=== PATIENT | female | born 1980 | race Two or more races ===

== ENCOUNTER 2024-07-12 20:56 | Emergency (ER) | payer MEDICAID, SELFPAY ==
[2024-07-12 20:56] VITALS: BMI 30.9
[2024-07-12 21:16] VITALS: BP 128/78; PULSE 88; RESP 18; TEMP 36.9; O2SAT 98
[2024-07-12] MEDS: ONDANSETRON ODT 4 MG TABRAP PO (21:33)
[2024-07-12] MEDS: MG HYD/AL HYD/SIME (Maalox Reg) SUSP 30 ML UDC PO (21:35)
--- NOTE | 2024-07-12 21:51 | PD.EDNV ---
Nausea/Vomit./Diarrhea-RME/HPI General Chief complaint: Nausea/Vomiting/Diarrhea Stated complaint: N/V X 1 WEEK Time Seen by Provider: 07/12/24 21:24 Arrival date/time: 07/12/24 20:56 44F with no significant PMH presents to ED with 1 week of intermittent N/V after she gets upset. Patient has been having arguments with her at home. Patient denies pain and SI/HI. Patient declines diagnostics and just wants meds. Limitations: no limitations Related Data Previous Rx's ?Medication ?Instructions ?Recorded benzonatate 200 mg capsule 200 mg PO TID PRN cough #30 caps 02/27/22 codeine 10 mg-guaifenesin 100 mg/5 5 ml PO Q4H PRN cough #120 mL 02/27/22 mL oral liquid ciprofloxacin HCl 500 mg tablet 500 mg PO BID #14 tabs 06/02/23 (Cipro) ondansetron 4 mg disintegrating 4 mg PO Q8H PRN nausea and 07/12/24 tablet vomiting #20 tabs Allergies Allergy/AdvReac Type Severity Reaction Status Date / Time NKA* Allergy Uncoded 07/12/24 20:57 Review of Systems Review of Systems Systems Reviewed: All systems reviewed, normal except as documented Constitutional Constitutional: Reports system reviewed and no additional complaints, except as documented, Denies fever(s) and Denies headache(s) ENT Ears, Nose, Mouth, and Throat: Denies disequilibrium and Denies headache(s) Cardiovascular Cardiovascular: Reports system reviewed and no additional complaints, except as documented, Denies chest pain and Denies dyspnea Respiratory Respiratory: Reports system reviewed and no additional complaints, except as documented, Denies cough and Denies dyspnea Gastrointestinal Gastrointestinal: Reports system reviewed and no additional complaints, except as documented, Reports as per HPI, Denies abdominal pain, Reports nausea and Reports vomiting Neurologic Neurologic: Reports system reviewed and no additional complaints, except as documented, Denies confusion, Denies disequilibrium and Denies headache(s) Psychiatric Psychiatric: Denies confusion Past Medical History Past Medical History CARDIAC: Negative Congestive Heart Failure RESPIRATORY: Negative Chronic Obstructive Pulmonary Disease (COPD) GENITOURINARY: Negative Renal Disease ENDOCRINE: Negative Diabetes Mellitus Type 1 or Diabetes Mellitus Type 2 Social History SMOKING STATUS: Never smoker SUBSTANCE USE: does not use ED Exam General Limitations: Present no limitations General appearance: Present alert and in no apparent distress Head Head exam: Present atraumatic Eye Eye exam: Present normal appearance, PERRL and EOMI ENT ENT exam: Present normal exam, normal oropharynx and mucous membranes moist Neck Neck exam: Present normal inspection, full ROM and trachea midline Chest Chest inspection: Present normal inspection and symmetric chest wall rise Respiratory Respiratory exam: Present normal lung sounds bilaterally Cardiovascular Cardiovascular exam: Present regular rate, normal rhythm and normal heart sounds Abdominal Exam Abdominal exam: Present soft and normal bowel sounds Extremities Exam Extremities exam: Present normal inspection and full ROM Back Exam Back exam: Present normal inspection and full ROM Neurological Exam Neurological exam: Present alert, oriented X3 and CN II-XII intact Psychiatric Psychiatric exam: Present normal affect and normal mood Skin Skin exam: Present warm, dry, intact and normal color Course Quality Measures none Orders Category Date Time Status Ondansetron Odt [Zofran Odt] Med 07/12/24 21:24 Discontinued 4 mg PO X1 ONE mg Hyd/Al Hyd/Tristan Susp [Maalox Susp] Med 07/12/24 21:24 Discontinued 30 ml PO X1 ONE mg Hyd/Al Hyd/Tristan Susp [Maalox Susp] Med 07/12/24 21:30 Discontinued 30 ml PO X1 ONE Vital Signs Vital signs: Vital Signs Temperature 98.5 F 07/12/24 21:16 Pulse Rate 88 07/12/24 21:16 Respiratory Rate 18 07/12/24 21:16 Blood Pressure 128/78 07/12/24 21:16 Pulse Oximetry (%) 98 07/12/24 21:16 Oxygen Delivery Method Room Air 07/12/24 21:16 O2 at 98% on RA and WNLs Nausea/Vomiting/Diarrhea MDM Narrative MDM Narrative:: 44F with no significant PMH presents to ED with 1 week of intermittent N/V after she gets upset. Patient has been having arguments with her at home. Patient denies pain and SI/HI. Patient declines diagnostics and just wants meds. Physical exam reveals clear ENT and lungs. No ab tenderness. Patient is afebrile, calm, and alert, if not a bit sad in appearance. Meds and skilled nursing facility counselor given. Patient data External records reviewed:: [facility] previous records Clinical information provided by:: patient Social determinants that could affect healthcare access:: none Patient has the following chronic illnesses:: none How is presenting disease/condition affected by chronic disease/condition?: no chronic disease Evaluation data The following diagnostics were reviewed and interpreted by me:: other (specify) (none) Lab and/or radiology exams considered but not ordered:: not ordered Interpretation Summary: n/a Medications / Prescriptions Medications / Prescriptions considered but not ordered:: ordered Medication administrations:: Medication Administration History Discontinued Medications Al Hydrox/Mg Hydrox/Simethicone (Mg Hyd/Al Hyd/Tristan (Maalox Reg) Susp 30 Ml Udc) 30 ml PO X1 ONE Stop: 07/12/24 21:25 Last Admin: 07/12/24 21:37 Dose: Not Given Documented By: JUAN Non-Admin Reason: CUBBIE FAILED TO OPEN Al Hydrox/Mg Hydrox/Simethicone (Mg Hyd/Al Hyd/Tristan (Maalox Reg) Susp 30 Ml Udc) 30 ml PO X1 ONE Stop: 07/12/24 21:31 Last Admin: 07/12/24 21:35 Dose: 30 ml Documented By: JUAN Ondansetron HCl (Ondansetron Odt 4 Mg Tabrap) 4 mg PO X1 ONE; Protocol Stop: 07/12/24 21:25 Last Admin: 07/12/24 21:33 Dose: 4 mg Documented By: JUAN above Consultations Consultation(s) initiated? (list below): No Diagnosis Nausea Differential Diagnosis: traveler's diarrhea, food poisoning, gastroenteritis, clostridium difficile infection, drug-induced nausea and vomiting, dehydration and other (N/V) Most likely diagnosis given after review of the tests above:: N/V Admission Indicated Admission indicated?: not indicated Admission Request Was there a request for admission?: No Disposition Plan Disposition Plan: Discharge Discharge Attestation Discharge Attestation: The patient and all family members were given an opportunity to ask questions and understood the discharge instructions. Discharge instructions specifically effects, indications for sooner follow up or return to the emergency department, and the expected course of current diagnosis. Patient condition: Stable Discharge Plan Plan Patient Disposition: HOME (Self Care) Disposition Comment: Stable Prescriptions/Referrals Prescriptions/Med Rec: New ondansetron 4 mg tablet,disintegrating 4 mg PO Q8H PRN (Reason: nausea and vomiting) Qty: 20 0RF No Action benzonatate 200 mg capsule 200 mg PO TID PRN (Reason: cough) Qty: 30 0RF codeine-guaifenesin 10-100 mg/5 mL liquid 5 ml PO Q4H PRN (Reason: cough) Qty: 120 0RF ciprofloxacin HCl [Cipro] 500 mg tablet 500 mg PO BID Qty: 14 0RF Referrals: No Primary/Family,Physician [Primary Care Provider] - In 1 week Problem List Clinical Impression: Nausea & vomiting Patient/Caregiver Discharge Instructions Additional Instructions: Please follow-up with PCP within 24-48 hours and return immediately if symptoms worsen. Print Language: Uzbek Stand Alone Forms: Patient Portal Info Letter PA/INSURANCE PROCESSOR Supervising Physician PA/INSURANCE PROCESSOR Supervising Physician: Dr. Hoang
== END 2024-07-12 21:45 | disposition home or self-care (01) ==
PROVIDERS: Emergency Provider Emergency Medicine
DX: R11.2 Nausea with vomiting, unspecified (principal)
CPT/HCPCS: 99282; Q0162; A9270

== ENCOUNTER → 2024-09-25 | Outpatient (CLI) | payer MEDICAID, SELFPAY ==
--- NOTE | 2024-09-25 10:00 | XR_ITS ---
Examination: Screening digital mammography, bilateral Computer aided detection 3-D breast Tomosynthesis, bilateral Date and time of exam: September 25, 2024 1033 hours Compared to mammograms July 06, 2023 Indication: Screening Technique: Nonmagnified MLO, CC views of the breasts to been obtained, reconstructed from 3-D Tomosynthesis images. R2 computer aided detection program utilized for evaluation of suspicious masses and/or abnormal calcifications. 3-D Tomosynthesis images obtained. Findings: Scattered areas of fibroglandular density. Benign calcifications. No interval suspicious masses Impression: BI-RADS category II: Benign Findings. Recommend 1 year follow-up mammogram.
== END | disposition home or self-care (01) ==
LOC: CDIM 10:02
PROVIDERS: Referring Provider Physician Assistant; Visit Provider Physician Assistant
DX: Z12.31 Encounter for screening mammogram for malignant neoplasm of breast (principal); R92.323 Mammographic fibroglandular density, bilateral breasts; R92.1 Mammographic calcification found on diagnostic imaging of breast
CPT/HCPCS: 77063; 77067

== ENCOUNTER 2024-11-10 11:21 | Emergency (ER) | payer MEDICAID, SELFPAY ==
[2024-11-10 11:35] VITALS: BP 108/73; PULSE 94; RESP 18; TEMP 36.9; O2SAT 96; BMI 30.7
--- NOTE | 2024-11-10 11:45 | XR_ITS ---
Examination: Abdomen sonogram, Limited Date and time of exam: November 10, 2024 at 1203 hrs. Indications: Upper abdominal pain beginning one year ago Technique: Real-time barrientos scale transabdominal sonographic images of the upper abdomen obtained. Findings: No gallstones Gallbladder wall 0.30 cm no edema Common bile duct enlarged 0.75 cm 40 visualized Liver 12.8 cm no liver lesions Normal hepatopedal portal venous flow Patent IVC Impression: As clinically warranted, consider MRCP follow-up to exclude common bile duct stones and/or stricture
--- NOTE | 2024-11-10 11:47 | PD.EDABDPN ---
ED Abdominal Pain RME/HPI General Chief Complaint: Abdominal Pain Stated complaint: RIGHT UPPER QUADRANT PAIN Time seen by provider: 11/10/24 11:48 Arrival date/time: 11/10/24 11:21 44-year-old female with no known medical history presents to the emergency room with a chief complaint of right upper quadrant abdominal pain that radiates to the epigastric area x 1 year Source: patient Mode of arrival: ambulatory Limitations: no limitations Related Data Previous Rx's ?Medication ?Instructions ?Recorded benzonatate 200 mg capsule 200 mg PO TID PRN cough #30 caps 02/27/22 codeine 10 mg-guaifenesin 100 mg/5 5 ml PO Q4H PRN cough #120 mL 02/27/22 mL oral liquid ciprofloxacin HCl 500 mg tablet 500 mg PO BID #14 tabs 06/02/23 (Cipro) ondansetron 4 mg disintegrating 4 mg PO Q8H PRN nausea and 07/12/24 tablet vomiting #20 tabs Allergies Allergy/AdvReac Type Severity Reaction Status Date / Time NKA* Allergy Uncoded 11/10/24 11:24 Review of Systems Review of Systems Systems Reviewed: All systems reviewed, normal except as documented Constitutional Constitutional: Reports system reviewed and no additional complaints, except as documented, Denies fatigue, Denies fever(s), Denies headache(s) and Denies weakness Eyes Eyes: Reports system reviewed and no additional complaints, except as documented, Denies blurry vision and Denies change in vision ENT Ears, Nose, Mouth, and Throat: Reports system reviewed and no additional complaints, except as documented, Denies otalgia, Denies headache(s), Denies nasal congestion, Denies throat swelling and Denies vertigo Cardiovascular Cardiovascular: Reports system reviewed and no additional complaints, except as documented, Denies chest pain, Denies dyspnea and Denies dyspnea on exertion Respiratory Respiratory: Reports system reviewed and no additional complaints, except as documented, Denies chest congestion, Denies cough, Denies dyspnea, Denies dyspnea on exertion and Denies wheezing Gastrointestinal Gastrointestinal: Reports system reviewed and no additional complaints, except as documented, Reports abdominal pain, Reports cramping, Reports nausea and Denies vomiting Genitourinary Genitourinary: Reports system reviewed and no additional complaints, except as documented Musculoskeletal Musculoskeletal: Reports system reviewed and no additional complaints, except as documented and Denies back pain Integumentary/Breasts Skin/Breast: Reports system reviewed and no additional complaints, except as documented and Denies wounds Neurologic Neurologic: Reports system reviewed and no additional complaints, except as documented, Denies confusion, Denies headache(s), Denies lack of coordination, Denies vertigo and Denies weakness Psychiatric Psychiatric: Reports system reviewed and no additional complaints, except as documented, Denies anxiety, Denies confusion, Denies depression, Denies paranoia, Denies suicidal ideation and Denies tactile hallucinations Endocrine Endocrine: Reports system reviewed and no additional complaints, except as documented and Denies fatigue Hematologic/Lymphatic Hematologic/Lymphatic: Reports system reviewed and no additional complaints, except as documented and Denies lymphadenopathy Allergic/Immunologic Allergic/Immunologic: Reports system reviewed and no additional complaints, except as documented, Denies throat swelling, Denies urticaria and Denies wheezing Past Medical History Past Medical History CARDIAC: Negative Congestive Heart Failure RESPIRATORY: Negative Chronic Obstructive Pulmonary Disease (COPD) GENITOURINARY: Negative Renal Disease ENDOCRINE: Negative Diabetes Mellitus Type 1 or Diabetes Mellitus Type 2 Social History SMOKING STATUS: Never smoker SUBSTANCE USE: does not use ED Exam General Limitations: Present no limitations General appearance: Present alert and in no apparent distress Head Head exam: Present atraumatic Eye Eye exam: Present normal appearance, PERRL and EOMI ENT ENT exam: Present normal exam, normal oropharynx and mucous membranes moist Neck Neck exam: Present normal inspection, full ROM and trachea midline Chest Chest inspection: Present normal inspection and symmetric chest wall rise Respiratory Respiratory exam: Present normal lung sounds bilaterally Cardiovascular Cardiovascular exam: Present regular rate, normal rhythm and normal heart sounds Abdominal Exam Abdominal exam: Present soft, tenderness and normal bowel sounds; Absent distention, guarding, rebound or rigidity Abdominal tenderness: Present RUQ and moderate Extremities Exam Extremities exam: Present normal inspection and full ROM Back Exam Back exam: Present normal inspection and full ROM Neurological Exam Neurological exam: Present alert, oriented X3 and CN II-XII intact Psychiatric Psychiatric exam: Present normal affect and normal mood Skin Skin exam: Present warm, dry, intact and normal color Course Quality Measures none Orders Category Date Time Status US gall bladder Stat Exams 11/10/24 11:45 Completed CBC Stat Lab 11/10/24 12:16 Completed CMP [Comprehensive Metabolic Panel] Stat Lab 11/10/24 12:16 Completed HCG Qualitative,Urine Stat Lab 11/10/24 12:30 Completed Lipase Stat Lab 11/10/24 12:16 Completed UA [Urinalysis] Stat Lab 11/10/24 12:30 Completed Urine Culture Stat Lab 11/10/24 12:30 Received HYDROcodone*/APAP 5/325 [[place] 5/325] Med 11/10/24 11:45 Discontinued 1 tab PO X1 ONE Vital Signs Vital signs: Vital Signs Temperature 98.4 F 11/10/24 11:35 Pulse Rate 94 11/10/24 11:35 Respiratory Rate 18 11/10/24 11:35 Blood Pressure 108/73 11/10/24 11:35 Pulse Oximetry (%) 96 11/10/24 11:35 Oxygen Delivery Method Room Air 11/10/24 11:35 O2 saturation 96% within normal limits Abdominal Pain MDM MDM Narrative MDM Narrative:: 44-year-old female with no known medical history presents to the emergency room with a chief complaint of right upper quadrant abdominal pain that radiates to the epigastric area x 1 year Patient is hemodynamically stable. She is not tachycardic not tachypneic and afebrile. Patient states she has generalized abdominal tenderness x 1 year. Patient states her pain and tenderness is more to the right upper quadrant. The patient has a negative Carbone sign. Ultrasound of the gallbladder was completed and was within normal limits. CBC CMP and urinalysis are within normal limits. Patient was discharged and educated to follow-up with primary care provider in the next 24 to 48 hours and return to the emergency room for any evidence of worsening signs or symptoms Patient data External records reviewed:: [facility] previous records Clinical information provided by:: patient Social determinants that could affect healthcare access:: none Patient has the following chronic illnesses:: No chronic illness How is presenting disease/condition affected by chronic disease/condition?: no chronic disease Evaluation data The following diagnostics were reviewed and interpreted by me:: lab results and radiology exam(s) Lab and/or radiology exams considered but not ordered:: Labs and radiology exams considered and ordered Interpretation Summary: Ultrasound gallbladder-Findings: No gallstones Gallbladder wall 0.30 cm no edema Common bile duct enlarged 0.75 cm 40 visualized Liver 12.8 cm no liver lesions Normal hepatopedal portal venous flow Patent IVC Impression: As clinically warranted, consider MRCP follow-up to exclude common bile duct stones and/or stricture Medications / Prescriptions Medications or Prescriptions considered but not ordered:: Medication given Medication administrations:: Medication Administration History Discontinued Medications Hydrocodone Bitart/Acetaminophen (Hydrocodone/[place] 5/325 Tablet) 1 tab PO X1 ONE Stop: 11/10/24 11:46 Last Admin: 11/10/24 12:12 Dose: 1 tab Documented By: JUAN Medication given Consultations Consultation(s) initiated? (list below): No Diagnosis Differential diagnosis abdominal pain: abdominal pain, gastroenteritis and other (Cholelithiasis/cholecystitis) Most likely diagnosis given after review of the tests above:: Gastroenteritis Admission Indicated Admission indicated?: not indicated Admission Request Was there a request for admission?: No Disposition Plan Disposition Plan: Discharge Discharge Attestation Discharge Attestation: The patient and all family members were given an opportunity to ask questions and understood the discharge instructions. Discharge instructions specifically effects, indications for sooner follow up or return to the emergency department, and the expected course of current diagnosis. Patient condition: Stable Discharge Plan Plan Patient Disposition: HOME (Self Care) Disposition Comment: Stable Prescriptions/Referrals Prescriptions/Med Rec: No Action benzonatate 200 mg capsule 200 mg PO TID PRN (Reason: cough) Qty: 30 0RF codeine-guaifenesin 10-100 mg/5 mL liquid 5 ml PO Q4H PRN (Reason: cough) Qty: 120 0RF ondansetron 4 mg tablet,disintegrating 4 mg PO Q8H PRN (Reason: nausea and vomiting) Qty: 20 0RF ciprofloxacin HCl [Cipro] 500 mg tablet 500 mg PO BID Qty: 14 0RF Referrals: Ct Antony PA-C [Primary Care Provider] - In 1 week Problem List Clinical Impression: Gastroenteritis Patient/Caregiver Discharge Instructions Education Materials: Understanding Colitis, ED Gastroenteritis, Noninfectious Additional Instructions: Por favor, consulte con grijalva m?dico de cabecera en las pr?ximas 24 a 48 horas. Se realiz? sheyla ecograf?a de ves?cula biliar y result? negativa para cualquier hallazgo song. Lola an?lisis de marivel y orina resultaron negativos para cualquier hallazgo song. Ante cualquier signo de empeoramiento de los signos o s?ntomas, acuda inmediatamente a urgencias. Print Language: Upper Sorbian Stand Alone Forms: [employer] Award Info., Patient Portal Info Letter PA/AUTOMOTIVE REPAIR TECHNICIAN Supervising Physician PA/AUTOMOTIVE REPAIR TECHNICIAN Supervising Physician: Dr. Hoang
[2024-11-10] MEDS: HYDROcodone/APAP 5/325 TABLET 1 TAB PO (12:12)
[2024-11-10 12:26] LABS: Basophils % (Auto) 1 % (0-2.5); Eosinophils # (Auto) 0.3 Thou/mm3 (0.0-0.5); Eosinophils % (Auto) 5 % (0-10); Hematocrit 41.1 % (36.0-46.0); Hemoglobin 13.7 g/dL (12.0-16.0); Immature Granulocytes % (Auto) 0 % (0-0); Immature Granulocytes Auto 0.03 Thou/mm3 (0.00-0.00); Lymphocytes # (Auto) 1.9 Thou/mm3 (1.0-4.8); Lymphocytes % (Auto) 27 % (10-50); Mean Corpuscular HGB Conc 33.3 g/dl (31.0-37.0); Mean Corpuscular Hemoglobin 28.8 pg (25.0-35.0); Mean Corpuscular Volume 86 fL (80-100); Monocytes # (Auto) 0.5 Thou/mm3 (0.0-0.8); Monocytes % (Auto) 8 % (0-12); Neutrophils # (Auto) 4.2 Thou/mm3 (1.8-7.7); Neutrophils % (Auto) 59 % (37-80); Nucleated Red Blood Cell % 0 /100 WBC (0); Platelet Count 273 Thou/mm3 (140-440); RDW Standard Deviation 40.4 fL (36.4-46.3); Red Blood Count 4.76 Miln/mm3 (4.00-5.20); White Blood Count 7.1 Thou/mm3 (3.6-11.0)
[2024-11-10 12:38] LABS: Alanine Aminotransferase 28 U/L (10-49); Albumin, Serum 4.2 gm/dL (3.5-5.0); Albumin/Globulin Ratio 1.6 (1.2-2.2); Alkaline Phosphatase 72 U/L (46-116); Anion Gap 6 (7-16); Aspartate Amino Transferase 25 U/L (0-34); BUN/Creatinine Ratio 14 Ratio (12-20); Bilirubin,Total 0.5 mg/dL (0.3-1.2); Blood Urea Nitrogen 11 mg/dL (9-23); Calcium 9.1 mg/dL (8.3-10.6); Calcium (Corrected) 9.1 mg/dL (8.5-10.1); Carbon Dioxide 25.9 mMol/L (20.0-31.0); Chloride 104 mMol/L (98-107); Creatinine (Component) 0.8 mg/dL (0.6-1.3); Estimated Creatinine Clearance 93.5 mL/min (>60); Globulin 2.7 gm/dL (2.3-3.5); Glucose 81 mg/dL (74-106); Lipase 52 U/L (12-53); Osmolality,Calculated 270 (275-295); Potassium 4.3 mMol/L (3.4-5.1); Sodium 136 mMol/L (136-145); Total Protein 6.9 gm/dL (5.7-8.2); eGFR > 60 See Note
[2024-11-10 12:41] LABS: Collection Type, Urine Clean Catch
[2024-11-10 12:51] LABS: Bilirubin,Urine Negative (Negative); Blood,Urine Negative (Negative); Clarity,Urine Clear (Clear/Hazy); Color,Urine Lt-Yellow (Lt Yel-Yel); Glucose, Urine Negative (Negative); Ketones,Urine Negative (Negative); Leukocyte Esterase,Urine Negative (Negative); Nitrite,Urine Negative (Negative); Protein,Urine Negative (Neg - Trace); RBC,Urine 1 /hpf (0-3); Specific Gravity,Urine 1.025 (1.001-1.035); Squamous Epithelial Cell,Urine 9 /hpf (0-5); Urobilinogen,Urine Negative mg/dL (0.0-1.0); WBC,Urine 1 /hpf (0-5)
[2024-11-10 13:02] LABS: HCG Qualitative,Urine Negative
== END 2024-11-10 14:53 | disposition home or self-care (01) ==
PROVIDERS: Nurse Practitioner Family; Emergency Provider Emergency Medicine; PCP Physician Assistant
DX: K52.9 Noninfective gastroenteritis and colitis, unspecified (principal)
CPT/HCPCS: 36415; 76705; 80053; 81001; 81025; 83690; 85025; 87086; 99284; A9270

== ENCOUNTER → 2025-02-04 | Outpatient (CLI) | payer MEDICAID, SELFPAY ==
--- NOTE | 2025-02-04 08:12 | XR_ITS ---
MRI abdomen, without contrast. MRCP Date and time of exam: February 04, 2025 0826 hours INDICATIONS: Generalized abdominal pain beginning 2 years ago, enlarged common bile duct on gallbladder sonogram November 10, 2024 Technique: Multiple axial and coronal images of the abdomen have been obtained with the Siemens 1.5T MRI scanner. Images obtained included T1 weighted transverse images, T2-weighted transverse images, T2-weighted transverse images fat-suppressed, T2 weighted haste fat suppressed transverse images, T1 weighted images, in and out of phase images, T2-weighted coronal images, breath hold, T2 weighted haze coronal images as well as T2 weighted coronal thick slab images, MRCP. Findings: No focal liver lesions or intrahepatic biliary tract dilatation No gallstones Gallbladder wall does not appear thickened Common hepatic duct 4 mm common bile duct 3 mm no common bile duct stones Negative for pancreatitis Spleen not enlarged No hydronephrosis IMPRESSION: Normal gallbladder No common hepatic or common bile duct stones
== END | disposition home or self-care (01) ==
LOC: SDIM 07:21
PROVIDERS: PCP Physician Assistant; Referring Provider Physician Assistant; Visit Provider Physician Assistant
DX: R10.13 Epigastric pain (principal)
CPT/HCPCS: S8037; 74181

== ENCOUNTER 2025-06-28 07:56 | Emergency (ER) | payer MEDICAID, SELFPAY ==
[2025-06-28 07:58] VITALS: BMI 26.8
[2025-06-28 08:09] VITALS: BP 119/83; PULSE 91; RESP 18; TEMP 36.7; O2SAT 96
--- NOTE | 2025-06-28 08:35 | EDNOTE_ITS ---
<Statement entered by Consuelo Goodwin MD - 07/06/25 16:26> As co-signing physician, I was present and available for consult prn. I concur with the plan and care as documented by the midlevel provider. Upper Respiratory Inf. RME/HPI General Chief Complaint: Flu Like Symptoms Stated Complaint: COUGH X1 WEEK, CHEST PRESSURE X4 DAYS Time Seen by Provider: 06/28/25 08:10 Arrival date/time: 06/28/25 07:56 This is a 45-year-old female that comes into the emergency room with complaints of cough, runny nose, right ear pain, sore throat, headache, for the past 10 days. Patient denies any sick contacts. Patient past medical history. Related Data Previous Rx's ?Medication ?Instructions ?Recorded benzonatate 200 mg capsule 200 mg PO TID PRN cough #30 caps 02/27/22 codeine 10 mg-guaifenesin 100 mg/5 5 ml PO Q4H PRN cou gh #120 mL 02/27/22 mL oral liquid ciprofloxacin HCl 500 mg tablet 500 mg PO BID #14 tabs 06/02/23 (Cipro) ondansetron 4 mg disintegrating 4 mg PO Q8H PRN nausea and 07/12/24 tablet vomiting #20 tabs ibuprofen 800 mg tablet 800 mg PO Q6H PRN pain #14 t abs 06/28/25 promethazine-DM 6.25 mg-15 mg/5 mL 5 ml PO Q6H PRN cou gh #120 mL 06/28/25 oral syrup Allergies Allergy/AdvReac Type Severity Reaction Status Date / Time No Known Allergies Allergy Unverified 06/28/25 08:39 Review of Systems Review of Systems Systems Reviewed: All systems reviewed, normal except as documented Past Medical History Past Medical History CARDIAC: Negative Congestive Heart Failure RESPIRATORY: Negative Chronic Obstructive Pulmonary Disease (COPD) GENITOURINARY: Negative Renal Disease ENDOCRINE: Negative Diabetes Mellitus Type 1 or Diabetes Mellitus Type 2 Social History SMOKING STATUS: Never smoker SUBSTANCE USE: does not use Past Medical History Comments PMH COMMENT: Denies ED Exam Narrative Physical exam: VITAL SIGNS: Reviewed. GENERAL APPEARANCE: Alert and interactive, follows commands, no acute distress, HEAD AND FACE: Non-traumatic. ENT: PERRL, conjuctiva pink and clear, eyelid no trauma, Mucous membrane moist. Right ear canal had foreign body and there. Patient had a leaf and a piece of plastic removed NECK: Supple, nontender, no nuchal rigidity. CHEST: No tenderness, no crepitus, no paradoxical movement, no retractions. LUNGS: Clear, well ventilated, symmetric, no rales, no wheezing, no rhonchi, no stridor, good breath sounds bilaterally. HEART: Regular rate, regular rhythm, no murmur, no gallops. ABDOMEN: Soft, nondistended, no guarding, nontender, no rebound, no masses, NEUROLOGICAL: Gross motor function intact sensory function intact, Appropriate for age. MUSCULOSKELETAL: low back nontender, full range of motion. EXTREMITIES: No redness no swelling no skin breakdown on bilateral foot and leg. Distal neurovascular status intact bilateral foot SKIN: Color pink, dry Course Quality Measures none Orders Category Date Time Status Irrigation both ears ONCE Care 06/28/25 08:31 Completed Acetaminophen Tab [Tylenol ES Tab] Med 06/28/25 08:38 Discontinued 1,000 mg PO X1 ONE Amoxicillin/Pot Clav 875 [Augmentin 875] Med 06/28/25 08:38 Discontinued 1 tab PO X1 ONE Ibuprofen Tab [Motrin Tab] Med 06/28/25 08:38 Discontinued 800 mg PO X1 ONE Promethazine/Dextromethorph [Phenergan Dm Syrup] Med 06/28/25 08:38 Discontinued 5 ml PO X1 ONE Vital Signs Vital signs: Vital Signs Temperature 98.1 F 06/28/25 08:09 Pulse Rate 91 06/28/25 08:09 Respiratory Rate 18 06/28/25 08:09 Blood Pressure 119/83 06/28/25 08:09 Pulse Oximetry (%) 96 06/28/25 08:09 Oxygen Delivery Method Room Air 06/28/25 08:09 Upper Respiratory Infection MDM Narrative MDM Narrative:: Patient had a foreign body in right ear. I removed the plastic from and debris from patient's ear. Patient told to follow-up with primary provider in 1 to 2 days. Come back to emergency room symptoms change or worsen. Patient told to have her ear looked at in a couple days to make sure everything looks okay. Patient verbalized understanding. Patient was given Augmentin, ibuprofen, Tylenol, and cough medicine. Patient states she feels better. Follow up with primary provider in 1-2 days. Come back to ED if symptoms change or worsen Hong dictation: Although this document has been carefully reviewed, there may still be some phonetic and other typographical errors. These errors are purely grammatical due to imperfections in the software program and should not be construed in any way to compromise the substance of the patient's medical care during this visit. Patient data External records reviewed:: [facility] previous records Clinical information provided by:: patient Social determinants that could affect healthcare access:: none Patient has the following chronic illnesses:: See note How is presenting disease/condition affected by chronic disease/condition?: no chronic disease Evaluation data The following diagnostics were reviewed and interpreted by me:: lab results and radiology exam(s) Lab and/or radiology exams considered but not ordered:: None Interpretation Summary: See note Medications / Prescriptions Medications or Prescriptions considered but not ordered:: See note Medication administrations:: Medication Administration History Discontinued Medications Acetaminophen (Acetaminophen 500 Mg Tablet) 1,000 mg PO X1 ONE Stop: 06/28/25 08:39 Last Admin: 06/28/25 08:55 Dose: 1,000 mg Documented By: BHAVYA Amoxicillin/Clavulanate Potassium (Amoxicillin/Pot Clav 875 Tablet) 1 tab PO X1 ONE Stop: 06/28/25 08:39 Last Admin: 06/28/25 08:56 Dose: 1 tab Documented By: BHAVYA Ibuprofen (Ibuprofen Tab 400 Mg Tablet) 800 mg PO X1 ONE Stop: 06/28/25 08:39 Last Admin: 06/28/25 08:55 Dose: 800 mg Documented By: BHAVYA Promethazine HCl/Dextromethorphan (Promethazine/Dm Syrup 5 Ml Dose) 5 ml PO X1 ONE; Protocol Stop: 06/28/25 08:39 Last Admin: 06/28/25 08:57 Dose: 5 ml Documented By: [facility] See MAR Consultations Consultation(s) initiated? (list below): No Diagnosis Upper Respiratory Differential Diagnosis: upper respiratory infection, otitis media, sinusitis and bronchitis Most likely diagnosis given after review of the tests above:: Foreign body in right ear and bronchitis Admission Indicated Admission indicated?: not indicated Admission Request Was there a request for admission?: No Disposition Plan Disposition Plan: Discharge Discharge Attestation Discharge Attestation: The patient and all family members were given an opportunity to ask questions and understood the discharge instructions. Discharge instructions specifically effects, indications for sooner follow up or return to the emergency department, and the expected course of current diagnosis. Patient condition: Stable Discharge Plan Plan Patient Disposition: HOME (Self Care) Patient condition on transfer: Stable Prescriptions/Referrals Prescriptions/Med Rec: New ibuprofen 800 mg tablet 800 mg PO Q6H PRN (Reason: pain) Qty: 14 0RF promethazine-DM 6.25-15 mg/5 mL syrup 5 ml PO Q6H PRN (Reason: cough) Qty: 120 0RF No Action benzonatate 200 mg capsule 200 mg PO TID PRN (Reason: cough) Qty: 30 0RF codeine-guaifenesin 10-100 mg/5 mL liquid 5 ml PO Q4H PRN (Reason: cough) Qty: 120 0RF ondansetron 4 mg tablet,disintegrating 4 mg PO Q8H PRN (Reason: nausea and vomiting) Qty: 20 0RF ciprofloxacin HCl [Cipro] 500 mg tablet 500 mg PO BID Qty: 14 0RF Problem List Clinical Impression: Foreign body in right ear, Cough, Pharyngitis Patient/Caregiver Discharge Instructions Discharge Activity: activity as tolerated Education Materials: ED EAR CANAL Foreign Body, ED Pharyngitis, Strep (Presumed) Additional Instructions: Clay un arlen con grijalva medico de cabecera en las proximas 24-48 horas. Regrese a la jannie de emergencias si hay evidencia de que los signos o sintomas empeoran. Print Language: Divehi Stand Alone Forms: [employer] Award Info., Patient Portal Info Letter PA/VET TECH Supervising Physician PA/VET TECH Supervising Physician: jon
[2025-06-28] MEDS: IBUPROFEN TAB 400 MG TABLET 800 MG PO (08:55)
[2025-06-28] MEDS: ACETAMINOPHEN 500 MG TABLET 1000 MG PO (08:55)
[2025-06-28] MEDS: AMOXICILLIN/POT CLAV 875 TABLET 1 TAB PO (08:56)
[2025-06-28] MEDS: PROMETHAZINE/DM SYRUP 5 ML DOSE PO (08:57)
--- NOTE | 2025-06-28 09:21 | PC.NURSE ---
irrigated right ear with 200 ml's warm water
== END 2025-06-28 09:23 | disposition home or self-care (01) ==
PROVIDERS: Emergency Provider Emergency Medicine; PCP Physician Assistant
DX: T16.1XXA Foreign body in right ear, initial encounter (principal); W44.9XXA Unspecified foreign body entering into or through a natural orifice, initial encounter
CPT/HCPCS: 69200; 99282; A9270

== ENCOUNTER → 2025-06-30 | Outpatient (CLI) | payer MEDICAID, SELFPAY ==
--- NOTE | 2025-06-30 16:12 | XR_ITS ---
EXAMINATION: PA lateral chest 2 views TECHNIQUE: Upright PA lateral chest 2 views Date and time: June 30, 2025, 1658 hours INDICATIONS: Coughing beginning 2 weeks ago. FINDINGS: Normal heart size Lungs are clear. Osseous structures are intact IMPRESSION: No active disease
== END | disposition home or self-care (01) ==
PROVIDERS: PCP Nurse Practitioner Family; Referring Provider Nurse Practitioner Family; Visit Provider Nurse Practitioner Family
DX: R05.3 Chronic cough (principal)
CPT/HCPCS: 71046